=== PATIENT | male | born 1950 | race Caucasian/White ===

== ENCOUNTER 2019-07-16 07:44 | Emergency (ER) | payer MEDICARE ==
[~2019-07-16] VITALS: Ht 182.8 cm; Wt 100.0 kg
--- NOTE | 2019-07-16 07:50 | NUR ---
Pt arrival per [facility]. CC rectal bleeding. Had colonoscopy with polypectomy 12mm size yesterday at . See triage. Pt states first dark stool noted 1800 last night. Pt was getting up this a.m. at [address] to but became very dizzy/lightheaded. Pt states he actually drove home from . Poor historian on overview of past medical/surgical hx. Pt continuous speaks about back pain current which is chronic and explains it is worse as he hadn't took his home med Baclofen [employer] and reports he has old bottles of Tramadol and Hydrocodone when it is out of control. Pt keeps giving hx of what he used to take for back pain that has been weened away from him including Valium. Pt denies any abdominal sx.
[2019-07-16 08:25] LABS: BASOPHILS % (AUTO) 0 % (0-10); EOSINOPHILS # (AUTO) 0.2 10^3/uL (0.0-0.3); EOSINOPHILS % (AUTO) 2 % (0-10); HEMATOCRIT 33 % (40-54); HEMOGLOBIN 10.9 G/DL (13.3-17.7); LYMPHOCYTES # (AUTO) 3.4 X 10^3 (1.0-4.0); LYMPHOCYTES % (AUTO) 31 % (12-44); MEAN CORPUSCULAR HEMOGLOBIN 30 PG (25-34); MEAN CORPUSCULAR HGB CONC 33 G/DL (32-36); MEAN CORPUSCULAR VOLUME 90 FL (80-99); MEAN PLATELET VOLUME 10.2 FL (7.4-10.4); MONOCYTES % (AUTO) 9 % (0-12); NEUTROPHILS # (AUTO) 6.4 X 10^3 (1.8-7.8); NEUTROPHILS % (AUTO) 58 % (42-75); PLATELET COUNT 220 10^3/uL (130-400); RED CELL DISTRIBUTION WIDTH 12.2 % (10.0-14.5); WHITE BLOOD COUNT 10.9 10^3/uL (4.3-11.0)
--- NOTE | 2019-07-16 08:45 | NUR ---
Requested pt's last 4 numbers of SS# to aide in hx from old [facility] records. Pt consents. 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 Dr Hanson given review of [facility] records.
[2019-07-16] MEDS ORDERED: DICL100G31 (08:51)
[2019-07-16] MEDS ORDERED: HYDR200T46 (08:51)
[2019-07-16] MEDS ORDERED: KETOCONAZOLE (08:51)
[2019-07-16] MEDS ORDERED: METF-397 PO (08:51)
[2019-07-16] MEDS ORDERED: ATOR20TA66 (08:51)
[2019-07-16] MEDS ORDERED: FOLI1TAB24 (08:51)
[2019-07-16] MEDS ORDERED: BACL10TA PO (08:51)
[2019-07-16 08:53] LABS: BUN/CREATININE RATIO 12; CARBON DIOXIDE 23 MMOL/L (21-32); CHLORIDE 106 MMOL/L (98-107); CREATININE SERUM 1.14 MG/DL (0.60-1.30); GFR ESTIMATED > 60; POTASSIUM 4.4 MMOL/L (3.6-5.0); SODIUM 142 MMOL/L (135-145)
[2019-07-16 08:54] LABS: ALANINE AMINOTRANSFERASE 19 U/L (0-55); ALBUMIN 3.6 GM/DL (3.2-4.5); ALKALINE PHOSPHATASE 58 U/L (40-136); BILIRUBIN,TOTAL 0.7 MG/DL (0.1-1.0); CALCIUM 8.6 MG/DL (8.5-10.1); GLUCOSE 283 MG/DL (70-105)
[2019-07-16] MEDS ORDERED: CHOL200012 PO (08:54)
[2019-07-16] MEDS ORDERED: MAGN250T2 PO (08:54)
[2019-07-16] MEDS ORDERED: UBID1CAP53 PO (08:54)
[2019-07-16] MEDS ORDERED: NIAC500T8 PO (08:54)
[2019-07-16] MEDS ORDERED: OMEG-141 PO (08:54)
[2019-07-16] MEDS ORDERED: NS IV 1000 ML 1,000 ML IV SCH (09:00)
--- NOTE | 2019-07-16 09:20 | NUR ---
Pt using call light x 2 close together. Pt jesús anxious and thrashing on cart reporting severe back pain and reports no Baclofen yesterday or today taken and old supply of Hydrocodone and Tramadol would "knock this out". Dr Hanson notified for request of pain med demanding Demerol and Phenergan work the best.
[2019-07-16] MEDS ORDERED: ONDANSETRON 4 MG/2 ML (SDV) Z0FRAN IVP ONE (09:30)
[2019-07-16] MEDS ORDERED: fentaNYL INJECTION 100 MCG/2 ML AMP IVP ONE (09:30)
--- NOTE | 2019-07-16 09:31 | NUR ---
Izabella flowers in EDM - 07/16/19 at 1413 by CKOROBERTA Fentanyl 50 mcg given slow IV push for pain rated "8"/10. Pt reports liking this medication IV ass immediate relief is beginning.
--- NOTE | 2019-07-16 09:31 | NUR ---
Fentanyl 50 mcg given slow IV push for pain rated "8"/10. Pt reports liking this medication IV as immediate relief is beginning.
--- NOTE | 2019-07-16 09:52 | NUR ---
Accepted to [facility], pending room number.
--- NOTE | 2019-07-16 10:10 | NUR ---
Warm blanket given. IV fluids completed. Pt states pain med is wearing off.
--- NOTE | 2019-07-16 10:20 | NUR ---
Notified pt's of pt's acceptance to [facility] but pending transfer R/T bed assignment not rec'd. is coming to ER.
--- NOTE | 2019-07-16 10:30 | NUR ---
is now present. Pt reported he was bored without having someone to talk to. Pt states he is avoiding the sensation to get up for BM as he doesn't want to experience the lightheaded feeling. Declines the bedpan.
--- NOTE | 2019-07-16 10:38 | ED GI ---
General Chief Complaint: Abdominal/GI Problems Stated Complaint: RECTAL BLEED Nursing Triage Note: Pt arrival per EMS for CC rectal bleeding. Pt had colonscopy at yesterday with 12 mm polyp resected and retrieved per pt's post op paperwork. Pt had stool at 1800 yesterday appearing tarry black. Pt has has some add'l stools with appearance bright red and clots. Last stool 0300. Pt too dizzy with sitting up to come POV. Sepsis Screen: No Definite Risk Source of Information: Patient History of Present Illness Date Seen by Provider: Jul 16, 2019 Time Seen by Provider: 08:00 Initial Comments Patient is a 69-year-old male who presents with bright red rectal bleeding dizziness lightheadedness starting yesterday evening. Patient states initially had heart problems with blood clots that which gradually turned bright red throughout the morning. Patient reports dizziness and lightheadedness and near syncope. x Patient had a colonoscopy with polypectomy at [facility] yesterday. Denies abdominal pain. No other acute symptoms or complaints. Timing/Duration: 1-3 Hours Severity/Quality: Moderate Radiation: No Radiation Modifying Factors: Improves With Lying down, Improves With Movement Associated Symptoms: Denies Symptoms Allergies and Home Medications Allergies Coded Allergies: morphine (Unverified Adverse Reaction, Unknown, 07/16/19) reports he passed out after each dose of medicine, refuses Morphine Home Medications Baclofen 10 Mg Tablet, 10 MG PO TID, (Reported) Cholecalciferol (Vitamin D3) 2,000 Unit Capsule, 2,000 UNIT PO BID, (Reported) Magnesium 250 Mg Tablet, 250 MG PO DAILY, (Reported) Metformin HCl 500 Mg Tablet, 500 MG PO BID WITH MEALS, (Reported) Niacinamide 500 Mg Tablet, 500 MG PO BID, (Reported) [place]-3/Dha/Epa/Fish Oil 1 Each Capsule, 1 EACH PO DAILY, (Reported) Ubidecarenone/Vit E Acetate 1 Each Capsule, 1 EACH PO BID, (Reported) Patient Home Medication List Home Medication List Reviewed: Yes Review of Systems Review of Systems Constitutional: see HPI EENTM: See HPI Cardiovascular: See HPI Gastrointestinal: See HPI Genitourinary: See HPI Musculoskeletal: see HPI Skin: see HPI Psychiatric/Neurological: See HPI Endocrine: See HPI Hematologic/Lymphatic: See HPI Past Yubsevd-Rjzhgz-Ztavyj Hx Past Med/Social Hx: Reviewed Nursing Past Med/Soc Hx Patient Social History Alcohol Use: Denies Use Recreational Drug Use: No Smoking Status: Former Smoker Type Used: Cigarettes Former Smoker, Quit: Sep 22, 1992 Recent Foreign Travel: No Contact w/Someone Who Travel: No Recent Infectious Disease Expo: No Recent Hopitalizations: No Physical Abuse: No Sexual Abuse: No Mistreated: No Fear: No Immunizations Up To Date Date of Pneumonia Vaccine: Jun 01, 2018 Date of Influenza Vaccine: Jun 01, 2018 Seasonal Allergies Seasonal Allergies: No Past Medical History Surgeries: Yes (partial Gastrectomy ("1/3 stomach removed"), Hallux bilat feet, shoulder) Orthopedic Respiratory: No Cardiac: Yes (Hx essential HTN, Thoracoabdominal aortic anerysm, PVD) Aneurysm, High Cholesterol, Hypertension, Peripheral Vascular Neurological: Yes (Hx Reactive confusion post op bowel surgery and in [place]) Genitourinary: Yes ("prostate problem") Gastrointestinal: Yes (Gastritic outlet obstruction, Bezoar) Gastrointestinal Bleed, Polyps Arthritis, Rheumatoid Arthritis, Scoliosis, Chronic Back Pain, Spasms Endocrine: Yes (Hypergylcemia) Diabetes, Non-Insulin dep HEENT: No Cancer: Yes (Basal and sqamous call chest/back) Skin Did You Recieve Any Treatments: Yes What Type of Treatment Did You: Surgical Intervention Psychosocial: Yes Anxiety Integumentary: Yes (reports fungal infection skin face/scalp) Blood Disorders: Yes (Anemia Hx) Adverse Reaction/Blood Tranf: No Physical Exam Vital Signs Vital Signs - First Documented 07/16/19 07:50 Temp 37.3 Pulse 98 Resp 18 B/P (MAP) 104/71 (82) Pulse Ox 100 O2 Delivery Room Air Capillary Refill : Less Than 3 Seconds Height/Weight/BMI Height: '" Weight: lbs. oz. 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, alert, oriented x 3 Skin: normal color, warm/dry Focused Exam Sepsis Stage: Ruled Out Progress/Results/Core Measures Results/Orders Lab Results Laboratory Tests Test 07/16/19 07:57 Range/Units White Blood Count 10.9 4.3-11.0 10^3/uL Red Blood Count 3.66 L 4.35-5.85 10^6/uL Hemoglobin 10.9 L 13.3-17.7 G/DL Hematocrit 33 L 40-54 % Mean Corpuscular Volume 90 80-99 FL Mean Corpuscular Hemoglobin 30 25-34 PG Mean Corpuscular Hemoglobin Concent 33 32-36 G/DL Red Cell Distribution Width 12.2 10.0-14.5 % Platelet Count 220 130-400 10^3/uL Mean Platelet Volume 10.2 7.4-10.4 FL Neutrophils (%) (Auto) 58 42-75 % Lymphocytes (%) (Auto) 31 12-44 % Monocytes (%) (Auto) 9 0-12 % Eosinophils (%) (Auto) 2 0-10 % Basophils (%) (Auto) 0 0-10 % Neutrophils # (Auto) 6.4 1.8-7.8 X 10^3 Lymphocytes # (Auto) 3.4 1.0-4.0 X 10^3 Monocytes # (Auto) 1.0 0.0-1.0 X 10^3 Eosinophils # (Auto) 0.2 0.0-0.3 10^3/uL Basophils # (Auto) 0.0 0.0-0.1 10^3/uL Sodium Level 142 135-145 MMOL/L Potassium Level 4.4 3.6-5.0 MMOL/L Chloride Level 106 98-107 MMOL/L Carbon Dioxide Level 23 21-32 MMOL/L Anion Gap 13 5-14 MMOL/L Blood Urea Nitrogen 14 7-18 MG/DL Creatinine 1.14 0.60-1.30 MG/DL Estimat Glomerular Filtration Rate > 60 BUN/Creatinine Ratio 12 Glucose Level 283 H 70-105 MG/DL Calcium Level 8.6 8.5-10.1 MG/DL Corrected Calcium 8.9 8.5-10.1 MG/DL Total Bilirubin 0.7 0.1-1.0 MG/DL Aspartate Amino Transf (AST/SGOT) 22 5-34 U/L Alanine Aminotransferase (ALT/SGPT) 19 0-55 U/L Alkaline Phosphatase 58 40-136 U/L Troponin I < 0.30 <0.30 NG/ML Pro-B-Type Natriuretic Peptide 74.7 <75.0 PG/ML Total Protein 6.0 L 6.4-8.2 GM/DL Albumin 3.6 3.2-4.5 GM/DL My Orders Orders - TARIQ BRICE DO Cbc With Automated Diff (07/16/19 08:05) Comprehensive Metabolic Panel (07/16/19 08:05) Troponin I Fs (07/16/19 08:05) Ekg Tracing (07/16/19 08:05) Probnp Fs (07/16/19 08:05) Ns Iv 1000 Ml (Sodium Chloride 0.9%) (07/16/19 09:00) Fentanyl Injection (Sublimaze Injection (07/16/19 09:30) Ondansetron Injection (Zofran Injectio (07/16/19 09:30) Medications Given in ED Current Medications Medications Dose Ordered Sig/Mali Route Start Time Stop Time Status Last Admin Dose Admin Fentanyl Citrate 50 mcg ONCE ONCE IVP 07/16/19 09:30 07/16/19 09:31 DC 07/16/19 09:31 50 MCG Ondansetron HCl 4 mg ONCE ONCE IVP 07/16/19 09:30 07/16/19 09:31 DC 07/16/19 09:31 4 MG Vital Signs/I&O 07/16/19 07:50 Temp 37.3 Pulse 98 Resp 18 B/P (MAP) 104/71 (82) Pulse Ox 100 O2 Delivery Room Air Blood Pressure Mean: 82 Departure Communication (Admissions) EKG: Sinus rhythm, rate 94, no acute ST-T wave changes. No rectal bleeding in the emergency department. Orthostatic up attention upon standing. IV fluids given. Vital signs stable and supine. Dr. Hammonds accepts to [facility] Impression Primary Impression: Orthostatic hypotension Additional Impression: GI bleed Disposition: HOME, SELF-CARE Condition: Stable TARIQ BRICE DO Jul 16, 2019 10:38
--- NOTE | 2019-07-16 11:00 | NUR ---
Updated patient of the pending bed for [facility], Dr Hanson requests RN to call at 1230 if bed assignment not given and get update.
--- NOTE | 2019-07-16 11:29 | NUR ---
Received call from Jesus at [facility], Bed [id number] given. Phone number to call JOSE De La Cruz received.
--- NOTE | 2019-07-16 11:35 | NUR ---
[facility] arriving.
--- NOTE | 2019-07-16 11:40 | NUR ---
Ending report with Dorothy GRACIA at . Report to Jose Alfredo PEÑA.
[2019-07-16 12:00] VITALS: BP 110/47
[2019-07-16] MEDS ORDERED: HYDROcodone/APAP 5 MG/325 MG (LORTAB) TAB PO ONE (12:00)
--- NOTE | 2019-07-16 12:00 | NUR ---
Pt depart at this time via [facility] to [facility] Code Yellow ACLS. 18 ga SL patent with blood return and flushed. Pt has received 2 L NS in ER as bolus and plan is monitoring for hypotension requiring further bolus of NS. Pt received Hydrocodone 5/325 mg prior to depart reporting uncontrolled chronic low back pain. Call to [facility] to report service used for transport and estimated 3 hr arrival. Pt has not had any stools in ER and has not voided after his boluses. is present. All patient belongings in pt's presence with transfer including clothing/home meds/cell phone.
== END 2019-07-16 12:00 | disposition home or self-care (01) ==
LOC: ER FS 07:46
DX: I95.1 Orthostatic hypotension (principal); K92.2 Gastrointestinal hemorrhage, unspecified; I10 Essential (primary) hypertension; E11.65 Type 2 diabetes mellitus with hyperglycemia; E78.00 Pure hypercholesterolemia, unspecified; M06.9 Rheumatoid arthritis, unspecified; F41.9 Anxiety disorder, unspecified; D64.9 Anemia, unspecified; Z85.828 Personal history of other malignant neoplasm of skin; Z88.5 Allergy status to narcotic agent; Z79.84 Long term (current) use of oral hypoglycemic drugs; Z87.891 Personal history of nicotine dependence
CPT/HCPCS: 36415; 80053; 83880; 84484; 85025; 93005; 96374; 96375